=== PATIENT | male | born 1955 | race Asian ===

== ENCOUNTER 2016-12-21 11:01 | Inpatient (IN) | payer OTHER ==
[~2016-12-21] VITALS: Ht 1706.9 cm; Wt 54.3 kg
[2016-12-21 12:05] LABS: EOSINOPHIL (%) 0.6 % (0-5); HEMATOCRIT 47.5 % (38.0-50.0); IMMATURE GRANULOCYTE (%) 0.3 % (0.0-0.7); IMMATURE GRANULOCYTE COUNT 0.2 K/uL; LYMPHOCYTE COUNT 1.5 K/uL (1.0-2.8); MCH 30.5 PG (29.0-34.0); MCHC 34.5 G/DL (30.0-36.0); MCV 88.5 FL (86-99); MONOCYTE COUNT 0.6 K/uL (0-0.8); NEUTROPHIL (%) 68.8 % (45-76); NEUTROPHIL COUNT 4.9 K/uL (1.8-6.4); PLATELET COUNT 296 K/uL (156-360); RBC DIS.WIDTH-CV 13.4 % (11.8-14.6); RBC DIS.WIDTH-SD 43.2 % (39-53); RED BLOOD COUNT 5.37 M/uL (4.00-5.50); WHITE BLOOD COUNT 7.1 K/uL (4.1-10.2)
[2016-12-21 12:14] LABS: CHLORIDE 107 mEq/L (99-109); POTASSIUM 3.5 mEq/L (3.7-5.4); SODIUM 140 mEq/L (136-147)
[2016-12-21 12:15] LABS: INTER. NORMALIZED RATIO 1.1; PTT 27.4 (25-32)
[2016-12-21 12:16] LABS: GLUCOSE 92 mg/dL (70-99)
[2016-12-21 12:17] LABS: ANION GAP 10 MEQ/L (2-14)
[2016-12-21 12:20] LABS: GFR ESTIMATE (CALCULATED) > 59 mL/min/
[2016-12-21 12:21] LABS: UREA NITROGEN (BUN) 10 mg/dL (9-23)
[2016-12-21 12:26] LABS: TROP-I INTERPRETATION NEGATIVE; TROPONIN-I < 0.01 ng/mL (0.0-0.30)
[2016-12-21 15:07] VITALS: BP 125/76
[2016-12-21 15:18] VITALS: BP 125/76
[2016-12-21 19:55] VITALS: BP 108/71
[2016-12-21 23:58] VITALS: BP 102/67
[2016-12-22 04:00] VITALS: BP 105/75
[2016-12-22 06:42] LABS: HEMATOCRIT 47.6 % (38.0-50.0); MCH 31.5 PG (29.0-34.0); MCHC 34.5 G/DL (30.0-36.0); MCV 91.4 FL (86-99); MEAN PLAT.VOLUME 9.5 uM^3 (9.0-12.4); PLATELET COUNT 275 K/uL (156-360); RBC DIS.WIDTH-CV 13.6 % (11.8-14.6); RED BLOOD COUNT 5.21 M/uL (4.00-5.50); WHITE BLOOD COUNT 6.6 K/uL (4.1-10.2)
[2016-12-22 07:07] LABS: ALKALINE PHOSPHATASE 110 IU/L (3-129); ANION GAP 7 MEQ/L (2-14); CHLORIDE 104 MEQ/L (99-109); GFR ESTIMATE (CALCULATED) > 59 mL/min/; GLUCOSE 99 mg/dL (70-99); POTASSIUM 3.7 MEQ/L (3.7-5.4); SAMPLE HEMOLYSIS CHECK 0; SAMPLE ICTERIC CHECK 0; SAMPLE LIPEMIA CHECK 0; SODIUM 140 MEQ/L (136-147); TOTAL BILIRUBIN 0.6 MG/DL (0.0-1.0); UREA NITROGEN (BUN) 12 mg/dL (9-23)
[2016-12-22 07:46] VITALS: BP 101/69
[2016-12-22 11:01] LABS: TYPE OF FLUID THORACENTESIS
[2016-12-22 11:13] LABS: BODY FLUID RBC'S 2000 /MM^3 (0-100); BODY FLUID WBC'S 486 /MM^3 (0-500)
[2016-12-22 11:31] LABS: BODY FLUID LDH 170 IU/L; BODY FLUID PROTEIN 4.8 G/DL
[2016-12-22 11:49] VITALS: BP 111/72
[2016-12-22 11:56] LABS: BODY FLUID EOSINOPHILS 1 % (0-25); MONO RAW COUNT 116; MONONUCLEAR WBC'S 58 %; POLY RAW COUNT 82; POLYNUCLEAR WBC'S 41 % (0-25)
[2016-12-22 16:11] VITALS: BP 107/70
[2016-12-22 19:20] VITALS: BP 102/60
[2016-12-22 23:56] VITALS: BP 108/70
[2016-12-23 04:10] VITALS: BP 102/70
[2016-12-23 06:18] LABS: HEMATOCRIT 47.8 % (38.0-50.0); MCH 31.5 PG (29.0-34.0); MCHC 34.7 G/DL (30.0-36.0); MCV 90.7 FL (86-99); MEAN PLAT.VOLUME 9.9 uM^3 (9.0-12.4); PLATELET COUNT 288 K/uL (156-360); RBC DIS.WIDTH-CV 13.7 % (11.8-14.6); RED BLOOD COUNT 5.27 M/uL (4.00-5.50); WHITE BLOOD COUNT 7.5 K/uL (4.1-10.2)
[2016-12-23 06:42] LABS: ANION GAP 10 MEQ/L (2-14); CHLORIDE 106 MEQ/L (99-109); GFR ESTIMATE (CALCULATED) > 59 mL/min/; GLUCOSE 99 mg/dL (70-99); POTASSIUM 3.7 MEQ/L (3.7-5.4); SAMPLE HEMOLYSIS CHECK 0; SAMPLE ICTERIC CHECK 0; SAMPLE LIPEMIA CHECK 0; SODIUM 140 MEQ/L (136-147); UREA NITROGEN (BUN) 13 mg/dL (9-23)
[2016-12-23 08:00] VITALS: BP 96/65
[2016-12-23 11:15] VITALS: BP 100/67
[2016-12-23 15:04] VITALS: BP 109/70
[2016-12-23 19:20] VITALS: BP 105/65
[2016-12-24] VITALS (7 sets, daily range): BP systolic 93–113; BP diastolic 60–76
[2016-12-24 07:08] LABS: HEMATOCRIT 48.3 % (38.0-50.0); MCH 31.7 PG (29.0-34.0); MCV 90.6 FL (86-99); MEAN PLAT.VOLUME 9.8 uM^3 (9.0-12.4); PLATELET COUNT 285 K/uL (156-360); RBC DIS.WIDTH-CV 13.6 % (11.8-14.6); RBC DIS.WIDTH-SD 45.1 % (39-53); RED BLOOD COUNT 5.33 M/uL (4.00-5.50); WHITE BLOOD COUNT 7.1 K/uL (4.1-10.2)
[2016-12-24 07:33] LABS: ANION GAP 9 MEQ/L (2-14); CHLORIDE 105 MEQ/L (99-109); GFR ESTIMATE (CALCULATED) > 59 mL/min/; GLUCOSE 94 mg/dL (70-99); POTASSIUM 4.3 MEQ/L (3.7-5.4); SAMPLE HEMOLYSIS CHECK 0; SAMPLE ICTERIC CHECK 0; SAMPLE LIPEMIA CHECK 0; SODIUM 140 MEQ/L (136-147); UREA NITROGEN (BUN) 12 mg/dL (9-23)
[2016-12-24 08:45] LABS: LACTATE DEHYDROGENASE 129 IU/L (20-246)
[2016-12-24 11:07] LABS: TYPE OF FLUID THORACENTESIS
[2016-12-24 11:35] LABS: BODY FLUID RBC'S 2000 /MM^3 (0-100); BODY FLUID WBC'S 1334 /MM^3 (0-500)
[2016-12-24 11:57] LABS: BODY FLUID EOSINOPHILS 2 % (0-25); MONO RAW COUNT 30; MONONUCLEAR WBC'S 30 %; POLY RAW COUNT 68; POLYNUCLEAR WBC'S 68 % (0-25)
[2016-12-24 11:58] LABS: BODY FLUID LDH 220 IU/L; BODY FLUID PROTEIN 4.7 G/DL
[2016-12-24 13:22] LABS: LACTATE DEHYDROGENASE 148 IU/L (20-246)
[2016-12-24 13:26] LABS: GLUCOSE 165 mg/dL (70-99)
[2016-12-25 00:05] VITALS: BP 103/63
[2016-12-25 02:39] LABS: BODY FLUID PH 7.7 (())
[2016-12-25 04:12] VITALS: BP 103/71
[2016-12-25 06:14] LABS: EOSINOPHIL (%) 1.2 % (0-5); EOSINOPHIL COUNT 0.1 K/uL (0-0.3); HEMATOCRIT 49.2 % (38.0-50.0); LYMPHOCYTE COUNT 1.4 K/uL (1.0-2.8); MCH 29.6 PG (29.0-34.0); MCHC 32.9 G/DL (30.0-36.0); MCV 89.8 FL (86-99); MEAN PLAT.VOLUME 9.6 uM^3 (9.0-12.4); MONOCYTE (%) 12.3 % (3-12); MONOCYTE COUNT 0.8 K/uL (0-0.8); NEUTROPHIL (%) 64.9 % (45-76); NEUTROPHIL COUNT 4.3 K/uL (1.8-6.4); PLATELET COUNT 290 K/uL (156-360); RBC DIS.WIDTH-CV 13.6 % (11.8-14.6); RBC DIS.WIDTH-SD 44.9 % (39-53); RED BLOOD COUNT 5.48 M/uL (4.00-5.50); WHITE BLOOD COUNT 6.6 K/uL (4.1-10.2)
[2016-12-25 06:55] LABS: ANION GAP 6 MEQ/L (2-14); CHLORIDE 105 MEQ/L (99-109); GFR ESTIMATE (CALCULATED) > 59 mL/min/; POTASSIUM 4.3 MEQ/L (3.7-5.4); SAMPLE HEMOLYSIS CHECK 0; SAMPLE ICTERIC CHECK 0; SAMPLE LIPEMIA CHECK 0; SODIUM 138 MEQ/L (136-147); UREA NITROGEN (BUN) 12 mg/dL (9-23)
[2016-12-25 06:57] LABS: GLUCOSE 106 mg/dL (70-99)
[2016-12-25 08:17] VITALS: BP 109/60
[2016-12-25 12:35] VITALS: BP 105/70
[2016-12-25 15:52] VITALS: BP 129/65
[2016-12-25 21:00] VITALS: BP 105/69
[2016-12-26] VITALS (7 sets, daily range): BP systolic 91–108; BP diastolic 60–72
[2016-12-26 06:55] LABS: EOSINOPHIL COUNT 0.1 K/uL (0-0.3); HEMATOCRIT 50.8 % (38.0-50.0); IMMATURE GRANULOCYTE (%) 0.2 % (0.0-0.7); LYMPHOCYTE COUNT 1.3 K/uL (1.0-2.8); MCH 29.7 PG (29.0-34.0); MCHC 33.1 G/DL (30.0-36.0); MCV 89.8 FL (86-99); MEAN PLAT.VOLUME 9.5 uM^3 (9.0-12.4); MONOCYTE (%) 12.3 % (3-12); MONOCYTE COUNT 0.8 K/uL (0-0.8); NEUTROPHIL (%) 64.8 % (45-76); NEUTROPHIL COUNT 4.2 K/uL (1.8-6.4); PLATELET COUNT 295 K/uL (156-360); RBC DIS.WIDTH-CV 13.5 % (11.8-14.6); RBC DIS.WIDTH-SD 44.3 % (39-53); RED BLOOD COUNT 5.66 M/uL (4.00-5.50); WHITE BLOOD COUNT 6.5 K/uL (4.1-10.2)
[2016-12-26 07:20] LABS: ANION GAP 7 MEQ/L (2-14); CHLORIDE 103 MEQ/L (99-109); GFR ESTIMATE (CALCULATED) > 59 mL/min/; GLUCOSE 92 mg/dL (70-99); POTASSIUM 4.5 MEQ/L (3.7-5.4); SAMPLE HEMOLYSIS CHECK 0; SAMPLE ICTERIC CHECK 0; SAMPLE LIPEMIA CHECK 0; SODIUM 137 MEQ/L (136-147); UREA NITROGEN (BUN) 10 mg/dL (9-23)
[2016-12-27 04:48] VITALS: BP 107/72
[2016-12-27 07:43] LABS: EOSINOPHIL (%) 0.8 % (0-5); EOSINOPHIL COUNT 0.1 K/uL (0-0.3); HEMATOCRIT 52.6 % (38.0-50.0); IMMATURE GRANULOCYTE (%) 0.3 % (0.0-0.7); LYMPHOCYTE COUNT 1.8 K/uL (1.0-2.8); MCH 31.4 PG (29.0-34.0); MCHC 34.6 G/DL (30.0-36.0); MCV 90.7 FL (86-99); MEAN PLAT.VOLUME 9.7 uM^3 (9.0-12.4); MONOCYTE COUNT 0.6 K/uL (0-0.8); NEUTROPHIL (%) 65.6 % (45-76); NEUTROPHIL COUNT 4.8 K/uL (1.8-6.4); PLATELET COUNT 291 K/uL (156-360); RBC DIS.WIDTH-CV 13.5 % (11.8-14.6); RBC DIS.WIDTH-SD 44.3 % (39-53); WHITE BLOOD COUNT 7.3 K/uL (4.1-10.2)
[2016-12-27 08:08] LABS: ANION GAP 9 MEQ/L (2-14); CHLORIDE 102 MEQ/L (99-109); GFR ESTIMATE (CALCULATED) > 59 mL/min/; GLUCOSE 108 mg/dL (70-99); POTASSIUM 4.6 MEQ/L (3.7-5.4); SAMPLE HEMOLYSIS CHECK 0; SAMPLE ICTERIC CHECK 0; SAMPLE LIPEMIA CHECK 0; SODIUM 138 MEQ/L (136-147); UREA NITROGEN (BUN) 15 mg/dL (9-23)
[2016-12-27 08:45] VITALS: BP 110/74
[2016-12-27 11:35] VITALS: BP 125/74
[2016-12-27 15:50] VITALS: BP 113/65
[2016-12-27 16:37] VITALS: BP 103/66
[2016-12-27 19:21] VITALS: BP 99/64
[2016-12-28] VITALS (7 sets, daily range): BP systolic 93–117; BP diastolic 59–68
[2016-12-28 07:09] LABS: EOSINOPHIL (%) 0.6 % (0-5); HEMATOCRIT 48.9 % (38.0-50.0); IMMATURE GRANULOCYTE (%) 0.1 % (0.0-0.7); LYMPHOCYTE COUNT 1.6 K/uL (1.0-2.8); MCH 31.4 PG (29.0-34.0); MCHC 34.8 G/DL (30.0-36.0); MCV 90.4 FL (86-99); MONOCYTE (%) 9.2 % (3-12); MONOCYTE COUNT 0.6 K/uL (0-0.8); NEUTROPHIL (%) 66.4 % (45-76); NEUTROPHIL COUNT 4.5 K/uL (1.8-6.4); PLATELET COUNT 307 K/uL (156-360); RBC DIS.WIDTH-CV 13.5 % (11.8-14.6); RBC DIS.WIDTH-SD 44.5 % (39-53); RED BLOOD COUNT 5.41 M/uL (4.00-5.50); WHITE BLOOD COUNT 6.8 K/uL (4.1-10.2)
[2016-12-28 07:49] LABS: ANION GAP 10 MEQ/L (2-14); CHLORIDE 103 MEQ/L (99-109); GFR ESTIMATE (CALCULATED) > 59 mL/min/; GLUCOSE 94 mg/dL (70-99); POTASSIUM 4.7 MEQ/L (3.7-5.4); SAMPLE HEMOLYSIS CHECK 0; SAMPLE ICTERIC CHECK 0; SAMPLE LIPEMIA CHECK 0; SODIUM 139 MEQ/L (136-147); UREA NITROGEN (BUN) 15 mg/dL (9-23)
[2016-12-29 03:41] VITALS: BP 96/58
[2016-12-29 08:37] VITALS: BP 105/70
[2016-12-29 12:00] VITALS: BP 104/67
[2016-12-29 16:00] VITALS: BP 94/61
[2016-12-29 20:28] VITALS: BP 109/64
[2016-12-29 23:27] VITALS: BP 101/62
[2016-12-30] VITALS (7 sets, daily range): BP systolic 97–119; BP diastolic 61–73
[2016-12-30 05:58] LABS: EOSINOPHIL (%) 0.9 % (0-5); EOSINOPHIL COUNT 0.1 K/uL (0-0.3); HEMATOCRIT 45.9 % (38.0-50.0); IMMATURE GRANULOCYTE (%) 0.2 % (0.0-0.7); LYMPHOCYTE COUNT 1.8 K/uL (1.0-2.8); MCH 30.8 PG (29.0-34.0); MCHC 34.2 G/DL (30.0-36.0); MCV 90.2 FL (86-99); MEAN PLAT.VOLUME 9.6 uM^3 (9.0-12.4); MONOCYTE (%) 10.9 % (3-12); MONOCYTE COUNT 0.6 K/uL (0-0.8); NEUTROPHIL (%) 54.4 % (45-76); NEUTROPHIL COUNT 2.9 K/uL (1.8-6.4); PLATELET COUNT 305 K/uL (156-360); RBC DIS.WIDTH-CV 13.2 % (11.8-14.6); RBC DIS.WIDTH-SD 43.5 % (39-53); RED BLOOD COUNT 5.09 M/uL (4.00-5.50); WHITE BLOOD COUNT 5.4 K/uL (4.1-10.2)
[2016-12-30 06:21] LABS: ANION GAP 6 MEQ/L (2-14); CHLORIDE 107 MEQ/L (99-109); GFR ESTIMATE (CALCULATED) > 59 mL/min/; GLUCOSE 93 mg/dL (70-99); POTASSIUM 4.3 MEQ/L (3.7-5.4); SAMPLE HEMOLYSIS CHECK 0; SAMPLE ICTERIC CHECK 0; SAMPLE LIPEMIA CHECK 0; SODIUM 138 MEQ/L (136-147); UREA NITROGEN (BUN) 13 mg/dL (9-23)
[2016-12-31 04:00] VITALS: BP 115/65
[2016-12-31 08:00] VITALS: BP 103/67
[2016-12-31 11:54] VITALS: BP 102/69
[2016-12-31 16:05] VITALS: BP 110/77
[2016-12-31 19:51] VITALS: BP 96/63
[2017-01-01] VITALS (7 sets, daily range): BP systolic 100–111; BP diastolic 56–71
[2017-01-02 04:34] VITALS: BP 107/70
[2017-01-02 05:32] LABS: HEMATOCRIT 46.9 % (38.0-50.0); MCH 29.3 PG (29.0-34.0); MCHC 32.2 G/DL (30.0-36.0); MCV 91.1 FL (86-99); MEAN PLAT.VOLUME 9.3 uM^3 (9.0-12.4); PLATELET COUNT 302 K/uL (156-360); RBC DIS.WIDTH-CV 13.5 % (11.8-14.6); RBC DIS.WIDTH-SD 44.6 % (39-53); RED BLOOD COUNT 5.15 M/uL (4.00-5.50); WHITE BLOOD COUNT 5.4 K/uL (4.1-10.2)
[2017-01-02 05:53] LABS: ANION GAP 6 MEQ/L (2-14); CHLORIDE 107 MEQ/L (99-109); GFR ESTIMATE (CALCULATED) > 59 mL/min/; GLUCOSE 93 mg/dL (70-99); SAMPLE HEMOLYSIS CHECK 0; SAMPLE ICTERIC CHECK 0; SAMPLE LIPEMIA CHECK 0; SODIUM 140 MEQ/L (136-147); UREA NITROGEN (BUN) 10 mg/dL (9-23)
[2017-01-02 08:00] VITALS: BP 107/64
[2017-01-02 11:37] VITALS: BP 104/69
[2017-01-02 16:00] VITALS: BP 98/64
[2017-01-02 19:51] VITALS: BP 109/66
[2017-01-02 23:55] VITALS: BP 113/67
[2017-01-03 03:40] VITALS: BP 102/69
[2017-01-03 08:00] VITALS: BP 102/68; BP 116/66
[2017-01-03 12:00] VITALS: BP 107/63
[2017-01-03 16:00] VITALS: BP 107/68
[2017-01-03 20:04] VITALS: BP 94/61
[2017-01-04] VITALS (7 sets, daily range): BP systolic 88–107; BP diastolic 54–74
[2017-01-05 00:07] VITALS: BP 90/53
[2017-01-05 05:02] VITALS: BP 93/62
[2017-01-05 07:59] VITALS: BP 107/63
[2017-01-05] MEDS ORDERED: SORE THROAT LO1 EAC3 MM (12:02)
[2017-01-05] MEDS ORDERED: ANASPAZ0.125 MG PO (12:02)
[2017-01-05] MEDS ORDERED: BENZONATATE100 MG PO (12:02)
[2017-01-05] MEDS ORDERED: MUCINEX600 MG PO (12:02)
[2017-01-05] MEDS ORDERED: MORPHINE CON20 MG/M1 PO (12:02)
[2017-01-05] MEDS ORDERED: ATIVAN0.5 MG PO (12:02)
[2017-01-05 12:29] VITALS: BP 106/71
== END 2017-01-05 13:26 | disposition hospice, home (50) | DRG 180 ==
LOC: EME → EDBD 11:01 → EME 11:01 → 4EAST 13:44 → EDOF 13:44 → 3EAST 13:44 → EDOF 14:05 → 4EAST 14:48 → 3EAST 12-28 09:12
PROVIDERS: Emergency Medicine; Internal Medicine; Internal Medicine Pulmonary Disease; Nurse Practitioner Family; Physician Assistant; Radiology Diagnostic Radiology
DX: C78.2 Secondary malignant neoplasm of pleura (principal); J96.01 Acute respiratory failure with hypoxia; J91.0 Malignant pleural effusion; D75.1 Secondary polycythemia; R55 Syncope and collapse; K21.9 Gastro-esophageal reflux disease without esophagitis; C26.9 Malignant neoplasm of ill-defined sites within the digestive system; E87.6 Hypokalemia; R10.13 Epigastric pain; N40.1 Benign prostatic hyperplasia with lower urinary tract symptoms; R30.0 Dysuria; J98.11 Atelectasis; Z87.891 Personal history of nicotine dependence; R63.4 Abnormal weight loss; R59.0 Localized enlarged lymph nodes; Z68.1 Body mass index [BMI] 19.9 or less, adult
CPT/HCPCS: 70450; 71010; 71020; 71250; 71260; 74176; 77012; 80048; 80053; 81003; 82945; 82947 91; 83615; 83615 91; 83880; 83986 90; 84155; 84157; 84484; 85025; 85027; 85610; 85730; 87040; 87070; 87075; 87116; 87205; 87206; 87493; 88108; 88305; 88341 TC; 88342 TC; 89051; 93005; 93306; 94799; 99281; 99285; C1729; C9113; J0456; J0696; J1170; J1200; J1650; J3010; J7030; J7050

== ENCOUNTER → 2017-02-07 | Outpatient (CLI) | payer OTHER ==
[~2017-02-07] MED LIST: ANASPAZ0.125 MG PO; ATIVAN0.5 MG PO; BENZONATATE100 MG PO; MORPHINE CON20 MG/M1 PO; MUCINEX600 MG PO; SORE THROAT LO1 EAC3 MM
== END | disposition home or self-care (01) ==
LOC: RAD 08:42 → EDSTATUS 09:00 → RAD 09:00
PROC: 0WP9X0Z Removal of Drainage Device from Right Pleural Cavity, External Approach (ICD-10-PCS; principal; 2017-02-07)
DX: Z46.82 Encounter for fitting and adjustment of non-vascular catheter (principal)
CPT/HCPCS: 32552